=== PATIENT | male | born 1965 | race Caucasian/White ===

== ENCOUNTER 2016-09-18 07:38 | Outpatient (CLI) | payer MEDICAID | END 2016-09-18 23:59 | DX: E87.6 Hypokalemia (principal); G62.9 Polyneuropathy, unspecified ==

== ENCOUNTER 2017-04-27 13:42 | Outpatient (CLI) | payer MEDICAID ==
[2017-04-27 18:08] LABS: BASOPHILS % (AUTO) 0.5 %; EOSINOPHILS # (AUTO) 0.1 10^3/uL (0.0-0.7); EOSINOPHILS % (AUTO) 1.4 %; HCT - HEMATOCRIT 46.4 % (42.0-52.0); HGB - HEMOGLOBIN 15.5 g/dL (14.0-18.0); LYMPHOCYTES # (AUTO) 1.8 10^3/uL (1.5-3.5); LYMPHOCYTES % (AUTO) 22.3 %; MEAN CORPUSCULAR HEMOGLOBIN 31.3 pg (27.0-31.0); MEAN CORPUSCULAR HGB CONC 33.4 g/dL (32.0-36.0); MEAN CORPUSCULAR VOLUME 93.8 fL (80.0-94.0); MEAN PLATELET VOLUME 7.1 fL (7.4-11.4); MONOCYTES # (AUTO) 0.7 10^3/uL (0.0-1.0); NEUTROPHILS # (AUTO) 5.5 10^3/uL (1.5-6.6); NEUTROPHILS % (AUTO) 67.8 %; NUCLEATED RED BLOOD CELLS AUTO 0.1 /100WBC; RED BLOOD COUNT 4.94 10^6/uL (4.70-6.10); RED CELL DISTRIBUTION WIDTH 13.6 % (12.0-15.0); UNCORRECTED WHITE BLOOD COUNT 8.2 x10^3/uL; WHITE BLOOD COUNT 8.2 x10^3/uL (4.8-10.8)
[2017-04-27 18:22] LABS: ALBUMIN/GLOBULIN RATIO 1.3 (1.0-2.2); BILIRUBIN,TOTAL 0.4 mg/dL (0.2-1.0); BUN - BLOOD UREA NITROGEN 13 mg/dL (6-20); CALCIUM 9.8 mg/dL (8.5-10.3); CARBON DIOXIDE - CO2 27 mmol/L (21-32); CHLORIDE 100 mmol/L (101-111); CREATININE 0.8 mg/dL (0.6-1.2); GFR - MDRD 102 (>89); GLUCOSE 94 mg/dL (70-100); IRON 120 ug/dL (45-182); SODIUM 139 mmol/L (135-145); TOTAL IRON BINDING CAPACITY 328 ug/dL (250-450); TOTAL PROTEIN 7.7 g/dL (6.7-8.2); TRANSFERRIN 234 mg/dL (180-329)
[2017-04-27 18:28] LABS: CHOL/HDL RATIO 6.4 (<5.0); CHOLESTEROL 231 mg/dL; HDL CHOLESTEROL 36 mg/dL; LDL/HDL RATIO 4.2 (<3.6); TRIGLYCERIDES 215 mg/dL; VLDL CHOLESTEROL 43 mg/dL
[2017-04-27 18:31] LABS: THYROID STIMULATING HORMONE 2.34 uIU/mL (0.34-5.60)
== END 2017-04-27 13:43 | disposition home or self-care (01) ==
LOC: LAB.F 13:42
PROVIDERS: ATTEND Nurse Practitioner Family
DX: I10 Essential (primary) hypertension (principal); E87.6 Hypokalemia; G62.9 Polyneuropathy, unspecified
CPT/HCPCS: 36415; 80053; 80061; 80164; 82607; 83540; 84443; 84466; 85025

== ENCOUNTER 2017-12-17 09:13 | Outpatient (CLI) | payer MEDICAID ==
[2017-12-17 09:20] LABS: MUDS CUTOFF CONCENTRATIONS CUTOFF CONC BELOW:
[2017-12-17 18:39] LABS: AMPHETAMINE SCREEN,URINE NEGATIVE (NEGATIVE); COCAINE SCREEN URINE NEGATIVE (NEGATIVE); METHAMPHETAMINES SCREEN, URINE NEGATIVE (NEGATIVE); OPIATE SCREEN, URINE NEGATIVE (NEGATIVE)
[2017-12-17 18:40] LABS: BENZODIAZEPINES SCREEN, URINE POSITIVE (NEGATIVE); METHADONE SCREEN, URINE NEGATIVE (NEGATIVE); OXYCODONE SCREEN, URINE NEGATIVE (NEGATIVE); PROPOXYPHENE SCREEN, URINE NEGATIVE (NEGATIVE); TRICYCLIC ANTIDEPRESSANT,URINE NEGATIVE (NEGATIVE)
== END 2017-12-17 09:14 | disposition home or self-care (01) ==
LOC: LAB.R 09:13
PROVIDERS: ATTEND Nurse Practitioner Family
DX: G89.29 Other chronic pain (principal)
CPT/HCPCS: 80306

== ENCOUNTER 2018-08-12 11:25 | Outpatient (CLI) | payer MEDICAID ==
[2018-08-12 18:09] LABS: ALBUMIN 4.3 g/dL (3.2-5.5); ALBUMIN/GLOBULIN RATIO 1.2 (1.0-2.2); ALKALINE PHOSPHATASE 84 IU/L (42-121); ALT ALANINE AMINOTRANSFERASE 33 IU/L (10-60); AST ASPARTATE AMINOTRANSFERASE 21 IU/L (10-42); BILIRUBIN,TOTAL 0.6 mg/dL (0.2-1.0); BUN - BLOOD UREA NITROGEN 15 mg/dL (6-20); CALCIUM 9.6 mg/dL (8.5-10.3); CARBON DIOXIDE - CO2 29 mmol/L (21-32); CHLORIDE 100 mmol/L (101-111); CHOL/HDL RATIO 8.2 (<5.0); CHOLESTEROL 189 mg/dL; CREATININE 0.8 mg/dL (0.6-1.2); GFR - MDRD 102 (>89); GLUCOSE 83 mg/dL (70-100); HDL CHOLESTEROL 23 mg/dL; LDL CHOLESTEROL,CALCULATED 119 mg/dL; LDL/HDL RATIO 5.2 (<3.6); SODIUM 138 mmol/L (135-145); TOTAL PROTEIN 7.8 g/dL (6.7-8.2); VLDL CHOLESTEROL 47 mg/dL
[2018-08-12 19:23] LABS: BASOPHILS % (AUTO) 0.4 %; EOSINOPHILS # (AUTO) 0.2 10^3/uL (0.0-0.7); EOSINOPHILS % (AUTO) 2.8 %; HGB - HEMOGLOBIN 15.4 g/dL (14.0-18.0); LYMPHOCYTES # (AUTO) 2.2 10^3/uL (1.5-3.5); LYMPHOCYTES % (AUTO) 33.1 %; MEAN CORPUSCULAR HEMOGLOBIN 30.5 pg (27.0-31.0); MEAN CORPUSCULAR HGB CONC 33.2 g/dL (32.0-36.0); MEAN CORPUSCULAR VOLUME 91.9 fL (80.0-94.0); MEAN PLATELET VOLUME 7.5 fL (7.4-11.4); MONOCYTES # (AUTO) 0.6 10^3/uL (0.0-1.0); MONOCYTES % (AUTO) 9.7 %; NEUTROPHILS # (AUTO) 3.5 10^3/uL (1.5-6.6); PLT - PLATELET COUNT 314 10^3/uL (130-450); RED BLOOD COUNT 5.06 10^6/uL (4.70-6.10); RED CELL DISTRIBUTION WIDTH 13.2 % (12.0-15.0); WHITE BLOOD COUNT 6.5 x10^3/uL (4.8-10.8)
== END 2018-08-12 23:59 | disposition home or self-care (01) ==
LOC: LAB.S 11:25
PROVIDERS: ATTEND Nurse Practitioner Family
DX: I10 Essential (primary) hypertension (principal); E78.5 Hyperlipidemia, unspecified
CPT/HCPCS: 36415; 80053; 80061; 83721; 84443; 85025

== ENCOUNTER 2018-09-10 17:40 | Outpatient (CLI) | payer MEDICAID | END 2018-09-10 17:41 | disposition critical access hospital (66) | LOC: EMS 17:40 | PROVIDERS: ATTEND Surgery | DX: R45.851 Suicidal ideations (principal); M54.9 Dorsalgia, unspecified | CPT/HCPCS: A0425; A0429; A0999 ==

== ENCOUNTER 2018-09-10 18:13 | Emergency (ER) | payer MEDICAID ==
[2018-09-10 18:41] LABS: BASOPHILS # (AUTO) 0.1 10^3/uL (0.0-0.1); BASOPHILS % (AUTO) 0.7 %; EOSINOPHILS # (AUTO) 0.1 10^3/uL (0.0-0.7); EOSINOPHILS % (AUTO) 1.3 %; HGB - HEMOGLOBIN 15.8 g/dL (14.0-18.0); LYMPHOCYTES # (AUTO) 1.8 10^3/uL (1.5-3.5); LYMPHOCYTES % (AUTO) 22.1 %; MEAN CORPUSCULAR HEMOGLOBIN 30.5 pg (27.0-31.0); MEAN CORPUSCULAR HGB CONC 33.7 g/dL (32.0-36.0); MEAN CORPUSCULAR VOLUME 90.5 fL (80.0-94.0); MEAN PLATELET VOLUME 6.9 fL (7.4-11.4); MONOCYTES # (AUTO) 0.8 10^3/uL (0.0-1.0); MONOCYTES % (AUTO) 9.4 %; NEUTROPHILS # (AUTO) 5.5 10^3/uL (1.5-6.6); NEUTROPHILS % (AUTO) 66.5 %; PLT - PLATELET COUNT 279 10^3/uL (130-450); RED BLOOD COUNT 5.16 10^6/uL (4.70-6.10); RED CELL DISTRIBUTION WIDTH 13.6 % (12.0-15.0); WHITE BLOOD COUNT 8.3 x10^3/uL (4.8-10.8)
[2018-09-10 18:55] LABS: ACETAMINOPHEN < 10 ug/mL (10-30); ALBUMIN 4.4 g/dL (3.2-5.5); ALBUMIN/GLOBULIN RATIO 1.4 (1.0-2.2); ALKALINE PHOSPHATASE 88 IU/L (42-121); ALT ALANINE AMINOTRANSFERASE 46 IU/L (10-60); AST ASPARTATE AMINOTRANSFERASE 28 IU/L (10-42); BILIRUBIN,TOTAL 0.7 mg/dL (0.2-1.0); BUN - BLOOD UREA NITROGEN 11 mg/dL (6-20); CALCIUM 9.5 mg/dL (8.5-10.3); CARBON DIOXIDE - CO2 25 mmol/L (21-32); CHLORIDE 105 mmol/L (101-111); CREATININE 0.7 mg/dL (0.6-1.2); GFR - MDRD 118 (>89); GLUCOSE 94 mg/dL (70-100); LIPASE 38 U/L (22-51); SALICYLATE < 6.0 mg/dL; SODIUM 140 mmol/L (135-145); TOTAL PROTEIN 7.6 g/dL (6.7-8.2)
[2018-09-10 19:03] LABS: MUDS CUTOFF CONCENTRATIONS CUTOFF CONC BELOW:
--- NOTE | 2018-09-10 19:04 | ED Physician Documentation ---
PD HPI MHE - Stated complaint Stated Complaint: SI - Chief complaint Chief Complaint: MHE - History obtained from History obtained from: Patient - History of Present Illness Primary symptom: Suicidal ideation (he was at PCP office for pain med renewal and eval of worsened chronic pain. He was told by provider that they were not wanting to give Rx for meds (he has been on some chronic pain meds awhile). He was frustrated and got angry and said that he was tired of it all, alluding to killing himself and "end things", but not directly stating that he wanted to kill himself. He here says he was frustrated and not meant it. He wants to live and has daughter/family. He says he was upset at the time and has no intention of suicide, but does get tired of the chronic pain. He says it has been worse th an baseline the past couple of weeks.), Anxiety (and frustration), Out of meds Timing - onset: Today Contributing factors: Out of meds (pain meds ran out few days ago, and he was in office to get new Rx of same doses chronic meds.), Other (frustrated by provider desire to rapidly titrate him down and off pain meds and initially not wanting to give Rx at all. Wanting referral for pain clinic.) Review of Systems Constitutional: denies: Fever, Chills Nose: denies: Rhinorrhea / runny nose, Congestion Throat: denies: Sore throat Respiratory: denies: Cough GI: denies: Abdominal Pain, Vomiting, Diarrhea Musculoskeletal: reports: Neck pain, Back pain (chronically related to neurostimulator frontal lobe that was surgical treatment for OCD disorder, but led to chronic neuropathic pain neck and back/shoulder left side. He says the OCD did get better.) PD PAST MEDICAL HISTORY - Past Medical History Past Medical History: Yes Neuro: Peripheral neuropathy Psych: Depression, Anxiety, Panic attacks, Post traumatic stress disorder - Past Surgical History Past Surgical History: Yes Neuro: Other - Present Medications Home Medications: Ambulatory Orders Medication Instructions Recorded Confirmed Amlodipine Besylate 10 mg PO DAILY 09/10/18 09/10/18 Baclofen 10 mg PO DAILY 09/10/18 09/10/18 Buspirone HCl 30 mg PO DAILY 09/10/18 09/10/18 Divalproex Sodium [Depakote] 500 mg PO DAILY 09/10/18 09/10/18 HYDROcod/ACETAM 5/325 [[place] 5/325] 1 each PO PRN PRN 09/10/18 09/10/18 Irbesartan/Hydrochlorothiazide 1 each PO DAILY 09/10/18 09/10/18 [Irbesartan-Hctz 300-12.5 mg Tb] LORazepam [Lorazepam] 1 mg PO PRN PRN 09/10/18 09/10/18 Lidocaine Ointment 5% [Xylocaine 0 gm TOP ONCE 09/10/18 09/10/18 Ointment 5%] Lisdexamfetamine Dimesylate 40 mg PO DAILY 09/10/18 09/10/18 [Vyvanse] Nortriptyline HCl 50 mg PO DAILY 09/10/18 09/10/18 Pregabalin [Lyrica] 100 mg PO DAILY 09/10/18 09/10/18 Trazodone HCl 100 mg PO QPM 09/10/18 09/10/18 - Allergies Allergies/Adverse Reactions: Allergies Allergy/AdvReac Type Severity Reaction Status Date / Time No Known Drug Allergies Allergy Verified 09/10/18 18:22 - Social History Does the pt smoke?: No Smoking Status: Never smoker Does the pt drink ETOH?: No Does the pt have substance abuse?: Yes Substance Use and Type: Prescription Pills - Immunizations Immunizations are current?: Yes PD ED PE NORMAL - Vitals Vital signs reviewed: Yes - General General: Alert and oriented X 3, No acute distress, Well developed/nourished - Neck Neck: Supple, no meningeal sign, No adenopathy - Cardiac Cardiac: RRR, No murmur - Respiratory Respiratory: Clear bilaterally - Derm Derm: Normal color, Warm and dry - Neuro Eye Opening: Spontaneous Motor: Obeys Commands Verbal: Oriented GCS Score: 15 - Psych Psych: Normal mood, Normal affect (denies self harm ideation nor intention. ) Results - Vitals Vitals: Vital Signs - 24 hr 09/10/18 09/10/18 18:14 20:37 Temperature 36.3 C L Heart Rate 97 90 Respiratory 20 17 Rate Blood Pressure 173/115 H 169/119 H O2 Saturation 97 93 Oxygen O2 Source Room air - Labs Labs: Laboratory Tests 0409/10/18 09/10/18 18:33 18:33 18:33 WBC 8.3 RBC 5.16 Hgb 15.8 Hct 46.7 MCV 90.5 MCH 30.5 MCHC 33.7 RDW 13.6 Plt Count 279 MPV 6.9 L Neut # (Auto) 5.5 Lymph # (Auto) 1.8 [place] # (Auto) 0.8 Eos # (Auto) 0.1 Baso # (Auto) 0.1 Absolute Nucleated RBC 0.01 Nucleated RBC % 0.1 Sodium 140 Potassium 3.2 L Chloride 105 Carbon Dioxide 25 Anion Gap 10.0 BUN 11 Creatinine 0.7 Estimated GFR (MDRD) 118 Glucose 94 Calcium 9.5 Total Bilirubin 0.7 AST 28 ALT 46 Alkaline Phosphatase 88 Total Protein 7.6 Albumin 4.4 Globulin 3.2 Albumin/Globulin Ratio 1.4 Lipase 38 TSH 3.40 Urine Color Urine Clarity Urine pH Ur Specific [place] Urine Protein Urine Glucose (UA) Urine Ketones Urine Occult Blood Urine Nitrite Urine Bilirubin Urine Urobilinogen Ur Leukocyte Esterase Ur Microscopic Review Urine Culture Comments Salicylates < 6.0 Urine Opiates Screen Ur Oxycodone Screen Urine Methadone Screen Ur Propoxyphene Screen Acetaminophen < 10 L Ur Barbiturates Screen Ur Tricyclics Screen Ur Phencyclidine Scrn Ur Amphetamine Screen U Methamphetamines Scrn U Benzodiazepines Scrn Urine Cocaine Screen U Cannabinoids Screen Ethyl Alcohol < 5.0 09/10/18 18:53 WBC RBC Hgb Hct MCV MCH MCHC RDW Plt Count MPV Neut # (Auto) Lymph # (Auto) [place] # (Auto) Eos # (Auto) Baso # (Auto) Absolute Nucleated RBC Nucleated RBC % Sodium Potassium Chloride Carbon Dioxide Anion Gap BUN Creatinine Estimated GFR (MDRD) Glucose Calcium Total Bilirubin AST ALT Alkaline Phosphatase Total Protein Albumin Globulin Albumin/Globulin Ratio Lipase TSH Urine Color YELLOW Urine Clarity CLEAR Urine pH 8.0 H Ur Specific [place] 1.010 Urine Protein NEGATIVE Urine Glucose (UA) NEGATIVE Urine Ketones NEGATIVE Urine Occult Blood NEGATIVE Urine Nitrite NEGATIVE Urine Bilirubin NEGATIVE Urine Urobilinogen 0.2 (NORMAL) Ur Leukocyte Esterase NEGATIVE Ur Microscopic Review NOT INDICATED Urine Culture Comments NOT INDICATED Salicylates Urine Opiates Screen NEGATIVE Ur Oxycodone Screen NEGATIVE Urine Methadone Screen NEGATIVE Ur Propoxyphene Screen NEGATIVE Acetaminophen Ur Barbiturates Screen NEGATIVE Ur Tricyclics Screen NEGATIVE Ur Phencyclidine Scrn NEGATIVE Ur Amphetamine Screen POSITIVE H U Methamphetamines Scrn NEGATIVE U Benzodiazepines Scrn POSITIVE H Urine Cocaine Screen NEGATIVE U Cannabinoids Screen NEGATIVE Ethyl Alcohol PD MEDICAL DECISION MAKING - ED course Complexity details: considered differential (is not suicidal. was upset and frustrated with chronic pain and the current opiod-phobia with providers. He has not had regular meds for few days. Given IM meds here and then prepack. He did get Rx from PCP but will not be able to get it filled this evening due to time. I do note the Rx written was for pain meds bid, and the patient had been TID, so is a 50% reduction for chronic pain med, which is fast taper, but that is just my commentary. ), d/w patient Departure - Departure Disposition: 01 Home, Self Care Clinical Impression: Chronic pain disorder, Stress reaction Condition: Stable Record reviewed to determine appropriate education?: Yes Follow-Up: Mandy Ortega ARNP [Primary Care Provider] - Comments: Continue usual medications. Follow-up with your primary care have them give your referral to pain clinic if that seems appropriate. Discharge Date/Time: 09/10/18 20:42
[2018-09-10 19:06] LABS: BILIRUBIN,URINE NEGATIVE (NEGATIVE); GLUCOSE, URINE (UA) NEGATIVE (NEGATIVE); KETONES,URINE (UA) NEGATIVE (NEGATIVE); LEUKOCYTE ESTERASE, URINE NEGATIVE (NEGATIVE); NITRITE,URINE NEGATIVE (NEGATIVE); OCCULT BLOOD,URINE NEGATIVE (NEGATIVE); PROTEIN,URINE NEGATIVE (NEGATIVE); UROBILINOGEN,URINE 0.2 (NORMAL) E.U./dL (NORMAL)
[2018-09-10 19:16] LABS: AMPHETAMINE SCREEN,URINE POSITIVE (NEGATIVE); BENZODIAZEPINES SCREEN, URINE POSITIVE (NEGATIVE); CLARITY,URINE CLEAR (CLEAR); COCAINE SCREEN URINE NEGATIVE (NEGATIVE); METHADONE SCREEN, URINE NEGATIVE (NEGATIVE); METHAMPHETAMINES SCREEN, URINE NEGATIVE (NEGATIVE); OPIATE SCREEN, URINE NEGATIVE (NEGATIVE); OXYCODONE SCREEN, URINE NEGATIVE (NEGATIVE); PROPOXYPHENE SCREEN, URINE NEGATIVE (NEGATIVE); TRICYCLIC ANTIDEPRESSANT,URINE NEGATIVE (NEGATIVE)
[2018-09-10] MEDS ORDERED: KETOROLAC 30 MG/ML VIAL IM STA (19:34)
[2018-09-10] MEDS ORDERED: HYDROmorphone 1 MG/ML CARPUJECT IM STA (19:34)
[2018-09-10] MEDS ORDERED: diazePAM 5 MG TABLET PO STA (19:34)
[2018-09-10] MEDS ORDERED: HYDROcod/ACET 5/325 Prepack 4 PO STA (19:50)
[2018-09-10 20:38] VITALS: BP 169/119
== END 2018-09-10 20:42 | disposition home or self-care (01) ==
LOC: EDUNIT# → ED 18:13
DX: M54.2 Cervicalgia (principal); M54.9 Dorsalgia, unspecified; M25.512 Pain in left shoulder; G89.29 Other chronic pain; F43.9 Reaction to severe stress, unspecified; G62.9 Polyneuropathy, unspecified
CPT/HCPCS: 36415; 80053; 80306; 80307; 80320; 80329; 81003; 83690; 84443; 85025; 96372; 99283; A9270; J1170; 81001; 87086

== ENCOUNTER 2019-05-01 09:13 | Outpatient (CLI) | payer MEDICAID ==
[2019-05-01 17:24] LABS: BASOPHILS # (AUTO) 0.1 10^3/uL (0.0-0.1); BASOPHILS % (AUTO) 1.1 %; EOSINOPHILS # (AUTO) 0.2 10^3/uL (0.0-0.7); EOSINOPHILS % (AUTO) 3.2 %; HGB - HEMOGLOBIN 15.8 g/dL (14.0-18.0); LYMPHOCYTES # (AUTO) 1.5 10^3/uL (1.5-3.5); LYMPHOCYTES % (AUTO) 26.5 %; MEAN CORPUSCULAR HEMOGLOBIN 31.3 pg (27.0-31.0); MEAN CORPUSCULAR HGB CONC 33.9 g/dL (32.0-36.0); MEAN CORPUSCULAR VOLUME 92.3 fL (80.0-94.0); MEAN PLATELET VOLUME 9.6 fL (7.4-11.4); MONOCYTES # (AUTO) 0.5 10^3/uL (0.0-1.0); MONOCYTES % (AUTO) 8.5 %; NEUTROPHILS # (AUTO) 3.4 10^3/uL (1.5-6.6); NEUTROPHILS % (AUTO) 60.3 %; PLT - PLATELET COUNT 318 10^3/uL (130-450); RED BLOOD COUNT 5.05 10^6/uL (4.70-6.10); RED CELL DISTRIBUTION WIDTH 12.6 % (12.0-15.0); WHITE BLOOD COUNT 5.7 x10^3/uL (4.8-10.8)
[2019-05-01 17:51] LABS: ALBUMIN 4.6 g/dL (3.2-5.5); ALBUMIN/GLOBULIN RATIO 1.5 (1.0-2.2); BILIRUBIN,TOTAL 0.7 mg/dL (0.2-1.0); CALCIUM 9.2 mg/dL (8.5-10.3); CREATININE 0.8 mg/dL (0.6-1.2); TOTAL PROTEIN 7.7 g/dL (6.7-8.2)
[2019-05-01 17:55] LABS: AMYLASE 81 U/L (28-100); CHOL/HDL RATIO 8.2 (<5.0); CHOLESTEROL 189 mg/dL; HDL CHOLESTEROL 23 mg/dL; LDL CHOLESTEROL,CALCULATED 114 mg/dL; VLDL CHOLESTEROL 52 mg/dL
== END 2019-05-01 09:14 | disposition home or self-care (01) ==
LOC: LAB.S 09:13
PROVIDERS: ATTEND Nurse Practitioner Psychiatric/Mental Health
DX: E78.5 Hyperlipidemia, unspecified (principal); R11.0 Nausea; Z51.81 Encounter for therapeutic drug level monitoring; Z13.29 Encounter for screening for other suspected endocrine disorder; Z79.899 Other long term (current) drug therapy; I10 Essential (primary) hypertension; R10.13 Epigastric pain; F33.1 Major depressive disorder, recurrent, moderate
CPT/HCPCS: 36415; 80053; 80061; 82150; 82306; 82607; 83721; 84443; 85025

== ENCOUNTER 2020-08-03 16:34 | Observation (INO) | payer MEDICAID ==
[2020-08-03] MEDS ORDERED: SODIUM CHLORIDE 0.9% 1,000 ML IV STA (16:57)
--- NOTE | 2020-08-03 16:59 | ED Physician Documentation ---
History of Present Illness - Stated complaint Stated Complaint: SENT BY PCP-GI BLEED - Chief complaint Chief Complaint: Abd Pain - Additonal information Additional information: 55-year-old male presents emergency department for evaluation of 3 days of bloody diarrhea and mild left-sided abdominal pain. He reports that 3 days ago after having a bowel movement he noticed that toilet bowl had bloody stool in it. Since then he has noticed blood after wiping or davian hematochezia. He is not anticoagulated. Does not use NSAIDs. Denies excessive alcohol use. No history of previous GI bleed. He has never had a colonoscopy or colon cancer screening. No recent antibiotics or travel. Denies chest pain or shortness of breath. Review of Systems Constitutional: denies: Fever, Chills Eyes: reports: Reviewed and negative Ears: reports: Reviewed and negative Nose: reports: Reviewed and negative Throat: reports: Reviewed and negative Cardiac: reports: Chest pain / pressure Respiratory: denies: Dyspnea, Cough GI: reports: Abdominal Pain, Diarrhea, Bloody / black stool. denies: Nausea, Vomiting, Constipation : denies: Dysuria, Frequency, Hesitancy Skin: denies: Rash, Lesions Musculoskeletal: denies: Neck pain, Back pain Neurologic: reports: Reviewed and negative Psychiatric: reports: Reviewed and negative PD PAST MEDICAL HISTORY - Past Medical History Neuro: Peripheral neuropathy Psych: Depression, Anxiety, Panic attacks, Post traumatic stress disorder - Past Surgical History Past Surgical History: Yes Neuro: Other - Present Medications Home Medications: Ambulatory Orders Medication Instructions Recorded Confirmed Amlodipine Besylate 10 mg PO DAILY 09/10/18 09/10/18 Baclofen 10 mg PO DAILY 09/10/18 09/10/18 Buspirone HCl 30 mg PO DAILY 09/10/18 09/10/18 Divalproex Sodium [Depakote] 500 mg PO DAILY 09/10/18 09/10/18 HYDROcod/ACETAM 5/325 [[place] 5/325] 1 each PO PRN PRN 09/10/18 09/10/18 Irbesartan/Hydrochlorothiazide 1 each PO DAILY 09/10/18 09/10/18 [Irbesartan-Hctz 300-12.5 mg Tb] LORazepam [Lorazepam] 1 mg PO PRN PRN 09/10/18 09/10/18 Lidocaine Ointment 5% [Xylocaine 0 gm TOP ONCE 09/10/18 09/10/18 Ointment 5%] Lisdexamfetamine Dimesylate 40 mg PO DAILY 09/10/18 09/10/18 [Vyvanse] Nortriptyline HCl 50 mg PO DAILY 09/10/18 09/10/18 Pregabalin [Lyrica] 100 mg PO DAILY 09/10/18 09/10/18 Trazodone HCl 100 mg PO QPM 09/10/18 09/10/18 - Allergies Allergies/Adverse Reactions: Allergies Allergy/AdvReac Type Severity Reaction Status Date / Time No Known Drug Allergies Allergy Verified 08/03/20 16:41 - Social History Does the pt smoke?: No Smoking Status: Never smoker Does the pt drink ETOH?: No Does the pt have substance abuse?: Yes - Immunizations Immunizations are current?: Yes PD ED PE EXPANDED - General General: Alert, No acute distress, Well developed/nourished - Cardiac Cardiac: Regular Rate, Tachy, Radial strong equal, Pedal strong equal, Cap refill < 2 sec. No: Murmur Present - Respiratory Respiratory: Clear to ausultation zach. No: Distress, Labored - Abdomen Abdomen: Normal Bowel sounds, Tender to palpation, LLQ (Tenderness to left lower quadrant without guarding or rebound. No flank or CVA tenderness) - Back Back: Normal exam, CVA TTP right. No: CVA TTP left - Derm Derm: Normal color, Warm and dry. No: Rash, Petecchiae, Purpura - Extremities Extremities: Normal. No: Deformity, Tenderness - Neuro Neuro: Alert and Oriented X 3, CNII-XII intact - GCS Eye Opening: Spontaneous Motor: Obeys Commands Verbal: Oriented Total: 15 Results - Vitals Vitals: Vital Signs - 24 hr 08/03/20 08/03/20 16:42 17:30 Temperature 36.8 C 36.8 C Heart Rate 111 H 111 H Respiratory 18 18 Rate Blood Pressure 143/93 H 143/93 H O2 Saturation 100 100 Oxygen O2 Source Room air - Labs Labs: Laboratory Tests 08/03/20 08/03/20 08/03/20 15:03 15:03 15:03 WBC 9.6 RBC 3.11 L Hgb 9.7 L Hct 28.9 L MCV 92.9 MCH 31.2 H MCHC 33.6 RDW 13.2 Plt Count 302 MPV 8.7 Neut # (Auto) 5.5 Lymph # (Auto) 2.9 [place] # (Auto) 0.8 Eos # (Auto) 0.2 Baso # (Auto) 0.1 Absolute Nucleated RBC 0.00 Nucleated RBC % 0.0 PT 12.5 INR 1.1 Sodium 138 Potassium 3.6 Chloride 107 Carbon Dioxide 25 Anion Gap 6.0 BUN 17 Creatinine 0.8 Estimated GFR (MDRD) 101 Glucose 102 H Calcium 9.0 Total Bilirubin < 0.2 L AST 26 ALT 43 Alkaline Phosphatase 68 Total Protein 6.7 Albumin 4.1 Globulin 2.6 Albumin/Globulin Ratio 1.6 Lipase 37 Urine Color Urine Clarity Urine pH Ur Specific [place] Urine Protein Urine Glucose (UA) Urine Ketones Urine Occult Blood Urine Nitrite Urine Bilirubin Urine Urobilinogen Ur Leukocyte Esterase Ur Microscopic Review Urine Culture Comments 08/03/20 17:15 WBC RBC Hgb Hct MCV MCH MCHC RDW Plt Count MPV Neut # (Auto) Lymph # (Auto) [place] # (Auto) Eos # (Auto) Baso # (Auto) Absolute Nucleated RBC Nucleated RBC % PT INR Sodium Potassium Chloride Carbon Dioxide Anion Gap BUN Creatinine Estimated GFR (MDRD) Glucose Calcium Total Bilirubin AST ALT Alkaline Phosphatase Total Protein Albumin Globulin Albumin/Globulin Ratio Lipase Urine Color YELLOW Urine Clarity CLEAR Urine pH 6.0 Ur Specific [place] >=1.030 H Urine Protein TRACE Urine Glucose (UA) NEGATIVE Urine Ketones TRACE Urine Occult Blood NEGATIVE Urine Nitrite NEGATIVE Urine Bilirubin NEGATIVE Urine Urobilinogen 0.2 (NORMAL) Ur Leukocyte Esterase NEGATIVE Ur Microscopic Review NOT INDICATED Urine Culture Comments NOT INDICATED - Rads (name of study) CT abd Radiology: Final report received (Moderate colonic diverticulosis without signs of acute diverticulitis. Nonobstructing 3 mm calculus in the inferior region of the right kidney. No hydronephrosis. Mild hepatic steatosis.) PD MEDICAL DECISION MAKING - ED course Complexity details: reviewed results, re-evaluated patient, considered differential, d/w patient ED course: 55-year-old male presents emergency department for evaluation of 3 days of bloody diarrhea. Reports feeling somewhat lightheaded and dizzy but is never had colonoscopy or colon cancer screening. No recent antibiotics. On presentation he does have some mild tenderness in the left lower quadrant. Patient is not anticoagulated and does not use NSAIDs or alcohol excessively. Screening labs reveal moderate anemia with a hemoglobin of 9.7. This is a 6 g drop from baseline. no thrombocytopenia. Screening electrolytes are otherwise unremarkable. CT of the abdomen showed some mild diverticulosis without an obvious finding of diverticulitis or a cause for the bloody diarrhea. Given the anemia and reported bloody stools for 3 days I did discuss this case with on-call surgeon Dr. Quesada. She requests a medic medical admission with surgical consult. She would like the patient to have a GI prep overnight with a plan to do endoscopy/colonoscopy tomorrow. 1944: I have spoken with [facility] hospitalist Dr. powell who has agreed to admit pt for further evaluation of GI with surgical consult and scoping tomorrow Departure - Departure Disposition: ED Place in Observation Clinical Impression: GI bleed Qualifiers: GI bleed type/associated pathology: unspecified gastrointestinal hemorrhage type Qualified Code(s): K92.2 - Gastrointestinal hemorrhage, unspecified Anemia Qualifiers: Anemia type: unspecified type Qualified Code(s): D64.9 - Anemia, unspecified Follow-Up: AMINAH SALAZAR PA-C [Primary Care Provider] -
[2020-08-03] MEDS ORDERED: IOVERSOL 320 100 ML VIAL IVP ONE ×2 (17:12→19:14)
[2020-08-03 17:13] LABS: BASOPHILS # (AUTO) 0.1 10^3/uL (0.0-0.1); BASOPHILS % (AUTO) 0.8 %; EOSINOPHILS # (AUTO) 0.2 10^3/uL (0.0-0.7); HCT - HEMATOCRIT 28.9 % (42.0-52.0); HGB - HEMOGLOBIN 9.7 g/dL (14.0-18.0); LYMPHOCYTES # (AUTO) 2.9 10^3/uL (1.5-3.5); LYMPHOCYTES % (AUTO) 30.4 %; MEAN CORPUSCULAR HEMOGLOBIN 31.2 pg (27.0-31.0); MEAN CORPUSCULAR HGB CONC 33.6 g/dL (32.0-36.0); MEAN CORPUSCULAR VOLUME 92.9 fL (80.0-94.0); MEAN PLATELET VOLUME 8.7 fL (7.4-11.4); MONOCYTES # (AUTO) 0.8 10^3/uL (0.0-1.0); MONOCYTES % (AUTO) 7.9 %; NEUTROPHILS # (AUTO) 5.5 10^3/uL (1.5-6.6); NEUTROPHILS % (AUTO) 57.5 %; PLT - PLATELET COUNT 302 10^3/uL (130-450); RED BLOOD COUNT 3.11 10^6/uL (4.70-6.10); RED CELL DISTRIBUTION WIDTH 13.2 % (12.0-15.0); WHITE BLOOD COUNT 9.6 x10^3/uL (4.8-10.8)
[2020-08-03 17:23] LABS: INR 1.1 (0.8-1.2); PT - PROTHROMBIN TIME 12.5 secs (9.9-12.6)
[2020-08-03 17:25] LABS: BILIRUBIN,URINE NEGATIVE (NEGATIVE); GLUCOSE, URINE (UA) NEGATIVE (NEGATIVE); KETONES,URINE (UA) TRACE mg/dL (NEGATIVE); LEUKOCYTE ESTERASE, URINE NEGATIVE (NEGATIVE); NITRITE,URINE NEGATIVE (NEGATIVE); OCCULT BLOOD,URINE NEGATIVE (NEGATIVE); PROTEIN,URINE TRACE mg/dL (NEGATIVE); UROBILINOGEN,URINE 0.2 (NORMAL) E.U./dL (NORMAL)
[2020-08-03 17:26] LABS: ALBUMIN 4.1 g/dL (3.2-5.5); ALBUMIN/GLOBULIN RATIO 1.6 (1.0-2.2); ALKALINE PHOSPHATASE 68 IU/L (42-121); ALT ALANINE AMINOTRANSFERASE 43 IU/L (10-60); AST ASPARTATE AMINOTRANSFERASE 26 IU/L (10-42); BILIRUBIN,TOTAL < 0.2 mg/dL (0.2-1.0); BUN - BLOOD UREA NITROGEN 17 mg/dL (6-20); CARBON DIOXIDE - CO2 25 mmol/L (21-32); CHLORIDE 107 mmol/L (101-111); CREATININE 0.8 mg/dL (0.6-1.2); GFR - MDRD 101 (>89); GLUCOSE 102 mg/dL (70-100); LIPASE 37 U/L (22-51); POTASSIUM 3.6 mmol/L (3.5-5.0); SODIUM 138 mmol/L (135-145); TOTAL PROTEIN 6.7 g/dL (6.7-8.2)
[2020-08-03 17:26] LABS: CLARITY,URINE CLEAR (CLEAR)
--- NOTE | 2020-08-03 18:54 | CT Report ---
PROCEDURE: Abdomen/Pelvis W INDICATIONS: Blood diarrhea CONTRAST: IV CONTRAST: Optiray 320 ml: 100 PO CONTRAST: *NO PO CONTRAST TECHNIQUE: After the administration of intravenous contrast, 5 mm thick sections acquired from the diaphragms to the symphysis. 5 mm thick coronal and sagittal reformats were acquired. For radiation dose reducti on, the following was used: automated exposure control, adjustment of mA and/or kV according to aleisha ent size. COMPARISON: None. FINDINGS: Image quality: Excellent. ABDOMEN: Lung bases: Lung bases are clear. Heart size is normal. Solid organs: The liver is normal in size. Mild hypoattenuation of the liver is most likely related t o diffuse fatty infiltration. The gallbladder appears normal. Biliary system is non dilated. Pancrea s enhances normally. The spleen is normal in size. No adrenal nodules. Kidneys demonstrate normal s ize and enhancement, without hydronephrosis. A nonobstructing 3 mm calculus is seen in the interpola r region of the right kidney. Hypoattenuating lesions in both kidneys most likely represent benign cy sts. Peritoneum and bowel: Scattered diverticula are seen in the colon without signs of acute diverticulit is. Normal appendix. No free fluid or air. Nodes and vessels: No retroperitoneal or mesenteric adenopathy by size criteria. Aorta and inferior vena cava are normal in size. Miscellaneous: No ventral hernias. PELVIS: Genitourinary: Bladder wall thickness is normal. Miscellaneous: No inguinal hernias or adenopathy. Bones: No suspicious bony lesions. No vertebral body compression fractures. Focal degenerative adrián nges are seen at the L5-S1 level. IMPRESSION: 1. Moderate colonic diverticulosis without signs of acute diverticulitis. 2. Nonobstructing 3 mm calculus in the interpolar region of the right kidney. No hydronephrosis. 3. Mild hepatic steatosis. Reviewed by: Eric Mcmullen MD on 08/03/2020 5:53 PM AKLAURA Approved by: Eric Mcmullen MD on 08/03/2020 5:53 PM AKDT Station ID: [id number]
[2020-08-03] MEDS ORDERED: SODIUM CHLORIDE FLUSH 0.9% 10 ML SYRINGE IVP PRN (19:46)
[2020-08-03] MEDS ORDERED: ONDANSETRON 4 MG/2 ML VIAL IVP PRN (19:46)
--- NOTE | 2020-08-03 19:52 | HISTORY & PHYSICAL EXAMINATION ---
Chief Complaint - Chief Complaint Chief Complaint: bloody diarrhea History of Present Illness - Admitted From Admitted From:: [facility] ED - History Obtained From Records Reviewed: yes History obtained from: patient - History of Present Illness HPI Comment/Other: Patient is a 55-year-old male with medical history significant for insomnia, anxiety, hypertension, obsessive-compulsive disorder, prostate cancer status post surgery who presented to the ED with complaint of bloody diarrhea for 3 days. He was concerned and decided to come to the ED today after numerous occurrences of bloody diarrhea since onset. He reported feeling dizzy at time of initial onset but denied dizziness today. He denied chest pain, dyspnea, nausea, vomiting, fever or chills. He reported mild abdominal tenderness. His hemoglobin normally ranges around 15. Today CBC showed a hemoglobin of 9.7. He denies NSAID use and rarely consumes alcohol. He denies any previous occurence of this symptoms and he has never had a colonoscopy. As a result of his presentation he was admitted for further work-up. Dr. Monisha Quesada with general surgery was contacted by the ED provider and she is agreeable to see the patient in consult for colonoscopy tomorrow. 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 Mesh placed. - Family & Social History Family History Comment/Other: Patient denied any sigificant family history Living arrangement: At home Social History Notes: He lives at home with his parents. He does not use tobacco products or recreational substances. He rarely drinks alcohol. - POLST Patient has POLST: No POLST Status: Full Code Meds/Allgy - Home Medications Home Medications: Ambulatory Orders Medication Instructions Recorded Confirmed Amlodipine Besylate 10 mg PO DAILY 09/10/18 09/10/18 Baclofen 10 mg PO DAILY 09/10/18 09/10/18 Buspirone HCl 30 mg PO DAILY 09/10/18 09/10/18 Divalproex Sodium [Depakote] 500 mg PO DAILY 09/10/18 09/10/18 HYDROcod/ACETAM 5/325 [[place] 5/325] 1 each PO PRN PRN 09/10/18 09/10/18 Irbesartan/Hydrochlorothiazide 1 each PO DAILY 09/10/18 09/10/18 [Irbesartan-Hctz 300-12.5 mg Tb] LORazepam [Lorazepam] 1 mg PO PRN PRN 09/10/18 09/10/18 Lidocaine Ointment 5% [Xylocaine 0 gm TOP ONCE 09/10/18 09/10/18 Ointment 5%] Lisdexamfetamine Dimesylate 40 mg PO DAILY 09/10/18 09/10/18 [Vyvanse] Nortriptyline HCl 50 mg PO DAILY 09/10/18 09/10/18 Pregabalin [Lyrica] 100 mg PO DAILY 09/10/18 09/10/18 Trazodone HCl 100 mg PO QPM 09/10/18 09/10/18 - Allergies Allergies/Adverse Reactions: Allergies Allergy/AdvReac Type Severity Reaction Status Date / Time No Known Drug Allergies Allergy Verified 08/03/20 16:41 Review of Systems - Constitutional Constitutional: denies: Fatigue, Fever, Chills, Weakness - Eyes Eyes: denies: Pain, Dipolpia - Cardiovascular Cariovascular: denies: Irregular heart rate, Chest pain, Edema, Lightheadedness, Syncope, Exertional dyspnea - Respiratory Respiratory: denies: Wheezing, SOB at rest, SOB with exertion - Gastrointestinal Gastrointestinal: reports: Abdominal pain (mild tenderness), Diarrhea, Bloody stools. denies: Constipation, Black stools, Nausea, Vomiting, Coffee grounds emesis, Reflux/heartburn, Bloating, Poor appetite - Genitourinary Genitourinary: denies: Dysuria, Frequency, Urgency, Hematuria, Incontinence, Flank pain, Nocturia - Musculoskeletal Musculoskeletal: denies: Muscle pain, Back pain, Muscle aches - Integumentary Integumentary: denies: Rash, Pruritis, Lesions, Dryness - Neurological Neurological: denies: General weakness, Focal weakness, Headache, Dizziness - Psychiatric Psychiatric: denies: Depression, Anxiety - Endocrine Endocrine: denies: Polyuria, Polydypsia - Hematologic/Lymphatic Hematologic/Lymphatic: denies: Anemia, Bruising, Petechiae Prior Level of Functionality: He is independent of activities of daily living Exam - Vital Signs Vital Signs: Vital Signs x48h Temp Pulse Resp BP Pulse Ox 08/03/20 17:30 36.8 C 111 H 18 143/93 H 100 08/03/20 16:42 36.8 C 111 H 18 143/93 H 100 - Physical Exam General Appearance: positive: Alert, Mild distress Eyes Bilateral: positive: PERRL, EOMI ENT: positive: No signs of dehydration Neck: positive: No JVD, Trachea midline Respiratory: positive: Chest non-tender, No respiratory distress, Breath sounds nml. negative: Wheezes, Rales, Rhonchi Cardiovascular: positive: No murmur, Tachycardia Abdomen: positive: Nml bowel sounds, Tenderness (mild). negative: Guarding, Rebound Rectal: positive: Bloody stool. negative: Black stool Back: positive: Nml inspection Skin: positive: Color nml, No rash, Warm, Dry Extremities: positive: Non-tender, Full ROM, Nml appearance, No pedal edema Neurologic/Psychiatric: positive: Oriented x3, Mood/affect nml Conclusion/Plan - Problem List (1) GI bleed Conclusion/Plan: Etiology undetermined. Suspect lower GI bleed. Patient's hemoglobin today is 9.7. Usually his hemoglobin is about 15. Will monitor Bowel prep initiated. IV hydration with normal saline at 125 mL/h Dr. Monisha Quesada with general surgery was consulted. Anticipating a colonoscopy tomorrow. Qualifiers: GI bleed type/associated pathology: unspecified gastrointestinal hemorrhage type Qualified Code(s): K92.2 - Gastrointestinal hemorrhage, unspecified (2) Anemia Conclusion/Plan: Acute blood loss anemia versus chronic. Patient's hemoglobin in April 2019 was 15.8. His hemoglobin today is 9.7. We will check vitamin B12, folate and iron studies Qualifiers: Anemia type: unspecified type Qualified Code(s): D64.9 - Anemia, unspecifie d (3) Anxiety and depression Conclusion/Plan: On abilify and buspirone Will resume after colonoscopy Ativan ordered prn. (4) Hypertension Conclusion/Plan: Will resume home medication once verified and after colonoscopy Will order labetalol prn for SBP > 160 - Lab Results Fish Bones: 08/03/20 15:03 08/03/20 15:03 Core Measures - Anticipated LOS I expect patient to be DC'd or transferred within 96 hours.: Yes - DVT/VTE - Prophylaxis VTE/DVT Device ordered at admit?: Yes VTE/DVT Prophylaxis med ordered at admit?: No
[2020-08-03] MEDS: SODIUM/POTASSIUM/MAG SULFATES 354 ML PREP KIT PO SCH (21:32)
[2020-08-03] MEDS ORDERED: LORazepam 2 MG/ML VIAL IVP PRN (22:12)
[2020-08-03] MEDS ORDERED: LABETALOL 20 MG/4 ML SYRINGE IVP PRN (22:35)
[2020-08-04] MEDS: SODIUM CHLORIDE FLUSH 0.9% 10 ML SYRINGE IVP SCH ×4 (00:07→23:56)
[2020-08-04] MEDS: SODIUM CHLORIDE 0.9% 1,000 ML IV SCH ×2 (00:22→08:49)
[2020-08-04 05:03] LABS: BASOPHILS # (AUTO) 0.1 10^3/uL (0.0-0.1); BASOPHILS % (AUTO) 0.6 %; EOSINOPHILS # (AUTO) 0.3 10^3/uL (0.0-0.7); EOSINOPHILS % (AUTO) 3.6 %; HCT - HEMATOCRIT 23.4 % (42.0-52.0); HGB - HEMOGLOBIN 7.9 g/dL (14.0-18.0); LYMPHOCYTES # (AUTO) 2.5 10^3/uL (1.5-3.5); LYMPHOCYTES % (AUTO) 29.7 %; MEAN CORPUSCULAR HEMOGLOBIN 31.7 pg (27.0-31.0); MEAN CORPUSCULAR HGB CONC 33.8 g/dL (32.0-36.0); MONOCYTES # (AUTO) 0.7 10^3/uL (0.0-1.0); MONOCYTES % (AUTO) 7.9 %; NEUTROPHILS # (AUTO) 4.8 10^3/uL (1.5-6.6); NEUTROPHILS % (AUTO) 57.4 %; PLT - PLATELET COUNT 236 10^3/uL (130-450); RED BLOOD COUNT 2.49 10^6/uL (4.70-6.10); RED CELL DISTRIBUTION WIDTH 13.2 % (12.0-15.0); WHITE BLOOD COUNT 8.4 x10^3/uL (4.8-10.8)
[2020-08-04] MEDS: SODIUM/POTASSIUM/MAG SULFATES 354 ML PREP KIT PO SCH (05:09)
[2020-08-04 05:23] LABS: CREATININE 0.8 mg/dL (0.6-1.2); POTASSIUM 3.9 mmol/L (3.5-5.0)
[2020-08-04 06:08] LABS: FOLATE 11.47 ng/mL (5.90 - >24.8)
[2020-08-04] MEDS: PANTOPRAZOLE 40 MG VIAL IVP SCH (06:42)
[2020-08-04] MEDS ORDERED: CYANOCOBALAMIN 1,000 MCG/ML VIAL IM ONE (08:21)
[2020-08-04] MEDS ORDERED: HYDROcod/ACETAM 5/325 MG TABLET PO PRN (08:25)
[2020-08-04] MEDS: busPIRone 5 MG TABLET PO SCH ×2 (08:49→20:06)
[2020-08-04 09:07] LABS: VALPROIC ACID (DEPAKOTE) < 10.0 ug/mL
--- NOTE | 2020-08-04 09:29 | ANESTHESIA ---
Pre-Anesthesia VS, & Labs - Diagnosis bloody diarrhea - Procedure colonoscopy Vital Signs: Temp Pulse Resp BP Pulse Ox 36.6 C 95 18 114/89 H 97 08/04/20 05:00 08/04/20 05:00 08/04/20 05:00 08/04/20 05:00 08/04/20 05:00 Height: 5 ft 9 in Weight (kg): 96.5 kg Body Mass Index: 31.4 BMI Classification: Obese - NPO >8 hours - Lab Results Current Lab Results: Laboratory Tests 08/04/20 08:48: Valproic Acid < 10.0 08/04/20 07:30: Blood Type O POSITIVE, Antibody Screen NEGATIVE, Crossmatch IS Only See Detail 08/04/20 04:00: Blood Type Recheck O POSITIVE 08/04/20 04:00: Vitamin B12 159 L, Folate 11.47 08/04/20 04:00: Sodium 141, Potassium 3.9, Chloride 109, Carbon Dioxide 26, Anion Gap 6.0, BUN 12, Creatinine 0.8, Estimated GFR (MDRD) 101, Glucose 98, Calcium 8.0 L, Iron 45, TIBC 255, % Saturation 18 L, Transferrin 182 08/04/20 04:00: WBC 8.4, RBC 2.49 L, Hgb 7.9 L, Hct 23.4 L, MCV 94.0, MCH 31.7 H , MCHC 33.8, RDW 13.2, Plt Count 236, MPV 9.0, Neut # (Auto) 4.8, Lymph # (Auto) 2.5, Nicholas # (Auto) 0.7, Eos # (Auto) 0.3, Baso # (Auto) 0.1, Absolute Nucleated RBC 0.00, Nucleated RBC % 0.0 08/03/20 15:03: PT 12.5, INR 1.1 08/03/20 15:03: Sodium 138, Potassium 3.6, Chloride 107, Carbon Dioxide 25, Anion Gap 6.0, BUN 17, Creatinine 0.8, Estimated GFR (MDRD) 101, Glucose 102 H, Calcium 9.0, Total Bilirubin < 0.2 L, AST 26, ALT 43, Alkaline Phosphatase 68, Total Protein 6.7, Albumin 4.1, Globulin 2.6, Albumin/Globulin Ratio 1.6, Lipase 37 08/03/20 15:03: WBC 9.6, RBC 3.11 L, Hgb 9.7 L, Hct 28.9 L, MCV 92.9, MCH 31.2 H , MCHC 33.6, RDW 13.2, Plt Count 302, MPV 8.7, Neut # (Auto) 5.5, Lymph # (Auto) 2.9, Nicholas # (Auto) 0.8, Eos # (Auto) 0.2, Baso # (Auto) 0.1, Absolute Nucleated RBC 0.00, Nucleated RBC % 0.0 Lab results reviewed: Yes Fish Bones: 08/04/20 04:00 08/04/20 04:00 Home Medications and Allergies Active Medications Hydrocodone Bitart/Acetaminophen (Hydrocod/Acetam 5/325 Mg Tablet) 1 tab PO Q4HR PRN PRN Reason: PAIN Buspirone HCl (Buspirone 5 Mg Tablet) 5 mg PO BID [facility] Last Admin: 08/04/20 08:49 Dose: Not Given Documented by: Sodium Chloride (Normal Saline 0.9%) 1,000 mls @ 125 mls/hr IV .Q8H [facility] Last Admin: 08/04/20 08:49 Dose: 125 mls/hr Documented by: Labetalol HCl (Labetalol 20 Mg/4 Ml Syringe) 10 mg IVP Q4H PRN PRN Reason: PER PHYSICIAN ORDER Lorazepam (Lorazepam 2 Mg/Ml Vial) 0.5 mg IVP Q8H PRN PRN Reason: Anxiety Last Admin: 08/04/20 00:07 Dose: 0.5 mg Documented by: Ondansetron HCl (Ondansetron 4 Mg/2 Ml Vial) 4 mg IVP Q6HR PRN PRN Reason: Nausea / Vomiting Pantoprazole Sodium (Pantoprazole 40 Mg Vial) 40 mg IVP QDAC [facility] Last Admin: 08/04/20 06:42 Dose: 40 mg Documented by: Sodium Chloride (Sodium Chloride Flush 0.9% 10 Ml Syringe) 10 ml IVP PRN PRN PRN Reason: NEEDED PER PROVIDER ORDERS Sodium Chloride (Sodium Chloride Flush 0.9% 10 Ml Syringe) 10 ml IVP 0100,0900,1700 [facility] Last Admin: 08/04/20 08:49 Dose: 10 ml Documented by: Amlodipine Besylate 10 mg PO DAILY 09/10/18 Baclofen 10 mg PO DAILY 09/10/18 Buspirone HCl 30 mg PO DAILY 09/10/18 Divalproex Sodium [Depakote] 500 mg PO DAILY 09/10/18 HYDROcod/ACETAM 5/325 [[place] 5/325] 1 each PO PRN PRN 09/10/18 Irbesartan/Hydrochlorothiazide [Irbesartan-Hctz 300-12.5 mg Tb] 1 each PO DAILY 09/10/18 LORazepam [Lorazepam] 1 mg PO PRN PRN 09/10/18 Lidocaine Ointment 5% [Xylocaine Ointment 5%] 0 gm TOP ONCE 09/10/18 Lisdexamfetamine Dimesylate [Vyvanse] 40 mg PO DAILY 09/10/18 Nortriptyline HCl 50 mg PO DAILY 09/10/18 Pregabalin [Lyrica] 100 mg PO DAILY 09/10/18 Trazodone HCl 100 mg PO QPM 09/10/18 Allergies/Adverse Reactions: Allergies Allergy/AdvReac Type Severity Reaction Status Date / Time No Known Drug Allergies Allergy Verified 08/03/20 16:41 Anes History & Medical History - Anesthetic History Anesthesia Complications: reports: No previous complications Family history of Anesthesia Complications: Denies Family history of Malignant Hyperthermia: Denies - Medical History Cardiovascular: reports: Hypertension Neuro: reports: Peripheral neuropathy Smoking Status: Never smoker Psychosocial: reports: Anxiety, Other (OCD) Other Past Medical History: History of prostate cancer - Surgical History Urologic: reports: Prostatic surgery Neurologic: reports: Other (brain stim for OCD) Other Past Surgical History: Due to his left leg in high school due to an injury during sports. Mesh placed. Exam General: Alert, Oriented x3, Cooperative, No acute distress Dental: WNL Mouth Openin Fingerbreadth Neck Mobility: Normal Mallampati classification: II Respiratory: Lungs clear, Normal breath sounds, No respiratory distress, No accessory muscle use Cardiovascular: Regular rate, Normal S1, Normal S2, No murmurs Plan Anesthesia Type: General Consent for Procedure(s) Verified and Reviewed: Yes Code Status: Attempt Resuscitation ASA classification: 2-Mild systemic disease Is this case an emergency?: No
[2020-08-04] MEDS: D5.45NS W/20 MEQ KCL 1,000 ML IV SCH ×2 (13:50→23:56)
[2020-08-04 14:25] LABS: HCT - HEMATOCRIT 27.2 % (42.0-52.0)
--- NOTE | 2020-08-04 14:50 | PROVIDER PROGRESS NOTE ---
Assessment/Plan - Problem List (1) GI bleed Qualifiers: GI bleed type/associated pathology: unspecified gastrointestinal hemorrhage type Qualified Code(s): K92.2 - Gastrointestinal hemorrhage, unspecified Assessment/Plan: 08/04 Patient still report bloody stool in the morning. Patient's hemoglobin is 7.9. Patient will have 1 unit blood transfusion, pt report pt's feeling of dizziness. We will continue H&H to monitor, Continue consult with the GI surgeon, patient is planned to have colonoscopy at this afternoon. Continue IV fluids, n.p.o. Patient already finished bowel prepare for colonoscopy. (2) Anemia-B12 Deficiency Patient was found B12 deficiency anemia plus active blood loss from GI bleed. Patient will have 1 unit of blood transfusion, Continue H&H to monitor hemoglobin. (3) Anxiety and depression will resume home meds after confirmed by pharmacy. continue Ativan prn. (4) Hypertension stable, Will resume home blood pressure medicine after confirmed by pharmacy - Current Meds Current Meds: Current Medications Generic Name Dose Route Start Last Admin Trade Name Almasq PRN Reason Stop Dose Admin Buspirone HCl 5 mg 08/04/20 09:00 08/04/20 08:49 Buspirone 5 Mg Tablet PO Not Given BID [facility] Potassium Chloride/Dextrose/Sod Cl 1,000 mls @ 100 mls/hr 08/04/20 13:00 08/04/20 13:50 D5.45ns W/20 Meq Kcl IV 08/05/20 08:59 100 mls/hr .Q10H [facility] Administration Lorazepam 0.5 mg 08/03/20 22:12 08/04/20 00:07 Lorazepam 2 Mg/Ml Vial IVP 0.5 mg Q8H PRN Administration Anxiety Pantoprazole Sodium 40 mg 08/04/20 07:00 08/04/20 06:42 Pantoprazole 40 Mg Vial IVP 40 mg QDAC [facility] Administration Sodium Chloride 10 ml 08/04/20 01:00 08/04/20 08:49 Sodium Chloride Flush 0.9% 10 Ml Syringe IVP 10 ml 0100,0900,1700 [facility] Administration - Lab Result Fish Bone Diagrams: 08/04/20 14:10 08/04/20 04:00 - Additional Planning My Orders: My Active Orders 08/04/20 08:25 HYDROcod/ACETAM 5/325 [[place] 5/325] 1 tab PO Q4HR PRN 08/04/20 09:00 busPIRone [Buspar] 5 mg PO BID 08/04/20 13:00 D5.45ns W/20 Meq KCl 1,000 ml IV 100 mls/hr 08/04/20 21:00 traZODone [Desyrel] 150 mg PO QPM 08/04/20 22:00 H&H [HEMOGLOBIN AND HEMATOCRIT] [HEME] Q8H Subjective - Subjective Patient Reports: Feeling Better Objective Vital Signs: Vital Signs - 24 hr 08/03/20 08/03/20 08/03/20 16:42 17:30 20:13 Temperature 36.8 C 36.8 C 36.8 C Heart Rate 111 H 111 H 91 Heart Rate [ Brachial] Respiratory 18 18 18 Rate Blood Pressure 143/93 H 143/93 H 144/97 H Blood Pressure [Right Brachial artery] O2 Saturation 100 100 98 08/03/20 08/04/20 08/04/20 21:19 00:00 05:00 Temperature 36.8 C 36.5 C 36.6 C Heart Rate Heart Rate [ 88 107 H 95 Brachial] Respiratory 18 20 18 Rate Blood Pressure Blood Pressure 164/98 H 142/90 H 114/89 H [Right Brachial artery] O2 Saturation 99 96 97 08/04/20 08/04/20 08/04/20 09:00 10:44 11:08 Temperature 36.6 C 37.0 C 36.7 C Heart Rate 96 91 Heart Rate [ 99 Brachial] Respiratory 18 17 20 Rate Blood Pressure 128/94 H 148/94 H Blood Pressure 128/85 H [Right Brachial artery] O2 Saturation 94 08/04/20 08/04/20 13:00 13:40 Temperature 36.9 C 36.8 C Heart Rate 90 Heart Rate [ 90 Brachial] Respiratory 19 18 Rate Blood Pressure 139/89 H Blood Pressure 143/101 H [Right Brachial artery] O2 Saturation 97 Oxygen O2 Source Room air I&O (Last 24 Hrs): Intake and Output Totals x24h 08/02/20 08/03/20 08/04/20 23:59 23:59 23:59 Intake Total 1855 1675 Output Total 200 900 Balance 1655 775 General: Alert, Oriented x3, Cooperative, No acute distress HEENT: Atraumatic Neck: Supple Lymphatic: no adenopathy Neuro: Alert, Non Focal, Oriented Times 3 Cardiovascular: Regular rate, Normal S1, Normal S2 Respiratory: Chest non-tender, No respiratory distress, Breath sounds nml Abdomen: Normal bowel sounds, Soft Extremities: Normal pulses - Results Results: Laboratory Results WBC 8.4 x10^3/uL (4.8-10.8) 08/04/20 04:00 RBC 2.49 10^6/uL (4.70-6.10) L 08/04/20 04:00 Hgb 9.0 g/dL (14.0-18.0) L 08/04/20 14:10 Hct 27.2 % (42.0-52.0) L 08/04/20 14:10 MCV 94.0 fL (80.0-94.0) 08/04/20 04:00 MCH 31.7 pg (27.0-31.0) H 08/04/20 04:00 MCHC 33.8 g/dL (32.0-36.0) 08/04/20 04:00 RDW 13.2 % (12.0-15.0) 08/04/20 04:00 Plt Count 236 10^3/uL (130-450) 08/04/20 04:00 MPV 9.0 fL (7.4-11.4) 08/04/20 04:00 Neut # (Auto) 4.8 10^3/uL (1.5-6.6) 08/04/20 04:00 Lymph # (Auto) 2.5 10^3/uL (1.5-3.5) 08/04/20 04:00 Story # (Auto) 0.7 10^3/uL (0.0-1.0) 08/04/20 04:00 Eos # (Auto) 0.3 10^3/uL (0.0-0.7) 08/04/20 04:00 Baso # (Auto) 0.1 10^3/uL (0.0-0.1) 08/04/20 04:00 Absolute Nucleated RBC 0.00 x10^3/uL 08/04/20 04:00 Nucleated RBC % 0.0 /100WBC 08/04/20 04:00 PT 12.5 secs (9.9-12.6) 08/03/20 15:03 INR 1.1 (0.8-1.2) 08/03/20 15:03 Sodium 141 mmol/L (135-145) 08/04/20 04:00 Potassium 3.9 mmol/L (3.5-5.0) 08/04/20 04:00 Chloride 109 mmol/L (101-111) 08/04/20 04:00 Carbon Dioxide 26 mmol/L (21-32) 08/04/20 04:00 Anion Gap 6.0 (6-13) 08/04/20 04:00 BUN 12 mg/dL (6-20) 08/04/20 04:00 Creatinine 0.8 mg/dL (0.6-1.2) 08/04/20 04:00 Estimated GFR (MDRD) 101 (>89) 08/04/20 04:00 Glucose 98 mg/dL (70-100) 08/04/20 04:00 Calcium 8.0 mg/dL (8.5-10.3) L 08/04/20 04:00 Iron 45 ug/dL (45-182) 08/04/20 04:00 TIBC 255 ug/dL (250-450) 08/04/20 04:00 % Saturation 18 % (20-50) L 08/04/20 04:00 Transferrin 182 mg/dL (180-329) 08/04/20 04:00 Total Bilirubin < 0.2 mg/dL (0.2-1.0) L 08/03/20 15:03 AST 26 IU/L (10-42) 08/03/20 15:03 ALT 43 IU/L (10-60) 08/03/20 15:03 Alkaline Phosphatase 68 IU/L (42-121) 08/03/20 15:03 Total Protein 6.7 g/dL (6.7-8.2) 08/03/20 15:03 Albumin 4.1 g/dL (3.2-5.5) 08/03/20 15:03 Globulin 2.6 g/dL (2.1-4.2) 08/03/20 15:03 Albumin/Globulin Ratio 1.6 (1.0-2.2) 08/03/20 15:03 Lipase 37 U/L (22-51) 08/03/20 15:03 Vitamin B12 159 pg/mL (180-914) L 08/04/20 04:00 Folate 11.47 ng/mL (5.90 - >24.8) 08/04/20 04:00 Urine Color YELLOW 08/03/20 17:15 Urine Clarity CLEAR (CLEAR) 08/03/20 17:15 Urine pH 6.0 PH (5.0-7.5) 08/03/20 17:15 Ur Specific [place] >=1.030 (1.002-1.030) H 08/03/20 17:15 Urine Protein TRACE mg/dL (NEGATIVE) 08/03/20 17:15 Urine Glucose (UA) NEGATIVE mg/dL (NEGATIVE) 08/03/20 17:15 Urine Ketones TRACE mg/dL (NEGATIVE) 08/03/20 17:15 Urine Occult Blood NEGATIVE (NEGATIVE) 08/03/20 17:15 Urine Nitrite NEGATIVE (NEGATIVE) 08/03/20 17:15 Urine Bilirubin NEGATIVE (NEGATIVE) 08/03/20 17:15 Urine Urobilinogen 0.2 (NORMAL) E.U./dL (NORMAL) 08/03/20 17:15 Ur Leukocyte Esterase NEGATIVE (NEGATIVE) 08/03/20 17:15 Ur Microscopic Review NOT INDICATED 08/03/20 17:15 Urine Culture Comments NOT INDICATED 08/03/20 17:15 Valproic Acid < 10.0 ug/mL 08/04/20 08:48 Blood Type O POSITIVE 08/04/20 07:30 Blood Type Recheck O POSITIVE 08/04/20 04:00 Antibody Screen NEGATIVE 08/04/20 07:30 Crossmatch IS Only See Detail 08/04/20 07:30 ABX Reporting Has patient been on IV antibiotics over the past 48 hours?: No Current Medications - Current Medications Current Medications: Active Medications Hydrocodone Bitart/Acetaminophen (Hydrocod/Acetam 5/325 Mg Tablet) 1 tab PO Q4HR PRN PRN Reason: PAIN Buspirone HCl (Buspirone 5 Mg Tablet) 5 mg PO BID [facility] Last Admin: 08/04/20 08:49 Dose: Not Given Documented by: Potassium Chloride/Dextrose/Sod Cl (D5.45ns W/20 Meq Kcl) 1,000 mls @ 100 mls/hr IV .Q10H [facility] Stop: 08/05/20 08:59 Last Admin: 08/04/20 13:50 Dose: 100 mls/hr Documented by: Labetalol HCl (Labetalol 20 Mg/4 Ml Syringe) 10 mg IVP Q4H PRN PRN Reason: PER PHYSICIAN ORDER Lorazepam (Lorazepam 2 Mg/Ml Vial) 0.5 mg IVP Q8H PRN PRN Reason: Anxiety Last Admin: 08/04/20 00:07 Dose: 0.5 mg Documented by: Ondansetron HCl (Ondansetron 4 Mg/2 Ml Vial) 4 mg IVP Q6HR PRN PRN Reason: Nausea / Vomiting Pantoprazole Sodium (Pantoprazole 40 Mg Vial) 40 mg IVP QDAC [facility] Last Admin: 08/04/20 06:42 Dose: 40 mg Documented by: Sodium Chloride (Sodium Chloride Flush 0.9% 10 Ml Syringe) 10 ml IVP PRN PRN PRN Reason: NEEDED PER PROVIDER ORDERS Sodium Chloride (Sodium Chloride Flush 0.9% 10 Ml Syringe) 10 ml IVP 0100,0900,1700 [facility] Last Admin: 08/04/20 08:49 Dose: 10 ml Documented by: Trazodone HCl (Trazodone 50 Mg Tablet) 150 mg PO QPM [facility] Amlodipine Besylate 10 mg PO DAILY 09/10/18 Baclofen 10 mg PO DAILY 09/10/18 Buspirone HCl 30 mg PO DAILY 09/10/18 Divalproex Sodium [Depakote] 500 mg PO DAILY 09/10/18 HYDROcod/ACETAM 5/325 [[place] 5/325] 1 each PO PRN PRN 09/10/18 Irbesartan/Hydrochlorothiazide [Irbesartan-Hctz 300-12.5 mg Tb] 1 each PO DAILY 09/10/18 LORazepam [Lorazepam] 1 mg PO PRN PRN 09/10/18 Lidocaine Ointment 5% [Xylocaine Ointment 5%] 0 gm TOP ONCE 09/10/18 Lisdexamfetamine Dimesylate [Vyvanse] 40 mg PO DAILY 09/10/18 Nortriptyline HCl 50 mg PO DAILY 09/10/18 Pregabalin [Lyrica] 100 mg PO DAILY 09/10/18 Trazodone HCl 100 mg PO QPM 09/10/18
[2020-08-04] MEDS ORDERED: PROPOFOL 500 MG/50 ML 500 MG/50 ML VIAL ONE (15:55)
--- NOTE | 2020-08-04 16:42 | ANESTHESIA POST OP EVALUATION ---
Anesthesia Post Eval - Post Anesthesia Eval Vitals: Last Vital Signs Temp 36.8 C 08/04/20 15:52 Pulse 96 08/04/20 15:52 Resp 18 08/04/20 15:52 BP 141/94 H 08/04/20 15:52 Pulse Ox 97 08/04/20 15:52 CV Function Including HR & BP: positive: Stable Pain Control: positive: Satisfactory Nausea & Vomiting: positive: Negative Mental Status: positive: Baseline Respiratory Status: Airway Patent Hydration Status: Satisfactory Anesthesia Complications: positive: None
[2020-08-04] MEDS ORDERED: traZODone 50 MG TABLET PO SCH (21:00)
[2020-08-04 22:23] LABS: HCT - HEMATOCRIT 25.1 % (42.0-52.0); HGB - HEMOGLOBIN 8.6 g/dL (14.0-18.0)
[2020-08-05 04:46] LABS: BASOPHILS # (AUTO) 0.1 10^3/uL (0.0-0.1); BASOPHILS % (AUTO) 0.7 %; EOSINOPHILS # (AUTO) 0.3 10^3/uL (0.0-0.7); EOSINOPHILS % (AUTO) 4.4 %; HGB - HEMOGLOBIN 8.5 g/dL (14.0-18.0); LYMPHOCYTES # (AUTO) 2.2 10^3/uL (1.5-3.5); LYMPHOCYTES % (AUTO) 31.8 %; MEAN CORPUSCULAR HEMOGLOBIN 29.9 pg (27.0-31.0); MEAN CORPUSCULAR HGB CONC 32.7 g/dL (32.0-36.0); MEAN CORPUSCULAR VOLUME 91.5 fL (80.0-94.0); MEAN PLATELET VOLUME 8.7 fL (7.4-11.4); MONOCYTES # (AUTO) 0.6 10^3/uL (0.0-1.0); MONOCYTES % (AUTO) 8.8 %; NEUTROPHILS # (AUTO) 3.7 10^3/uL (1.5-6.6); NEUTROPHILS % (AUTO) 53.4 %; PLT - PLATELET COUNT 230 10^3/uL (130-450); RED BLOOD COUNT 2.84 10^6/uL (4.70-6.10); RED CELL DISTRIBUTION WIDTH 15.1 % (12.0-15.0); WHITE BLOOD COUNT 6.8 x10^3/uL (4.8-10.8)
[2020-08-05 04:57] LABS: CALCIUM 7.9 mg/dL (8.5-10.3); CREATININE 0.7 mg/dL (0.6-1.2); POTASSIUM 3.4 mmol/L (3.5-5.0)
[2020-08-05] MEDS: PANTOPRAZOLE 40 MG VIAL IVP SCH (06:12)
[2020-08-05] MEDS ORDERED: POTASSIUM CHLORIDE 20 MEQ TABLET PO ONE ×2 (06:47→07:36)
[2020-08-05] MEDS: busPIRone 5 MG TABLET PO SCH (08:18)
[2020-08-05 10:05] LABS: HCT - HEMATOCRIT 27.5 % (42.0-52.0); HGB - HEMOGLOBIN 8.9 g/dL (14.0-18.0)
--- NOTE | 2020-08-05 10:43 | PHARMACY PROGRESS NOTE ---
- Best Possible Medication History Admit Date and Time: 08/03/201945 Processed by: Pharmacy Medication History completed: Yes Patient Interview: Completed Secondary Source(s): Insurance records As the person ultimately responsible for medication therapy, providers are able to order a medication from an existing home medication list in [facility] via the "Reconcile Routine" prior to Confirmation of that medication by academic support assistant. Such practice is discouraged except when the physician, in their clinical judgment, deems that a medical need exists for a medication without regard to previous use.
--- NOTE | 2020-08-05 11:14 | Discharge Plan ---
Discharge Plan Problem Reviewed?: Yes Disposition: Home, Self Care Condition: Stable Diet: Regular Activity Restrictions: Activity as Tolerated Shower Restrictions: No (fall precaution) Instruction Topics: Bleeding Gastrointestinal, Diverticulosis Diverticulitis Health Concerns: GI bleed Plan of Treatment: Your HGB is stable and raised. you have colonoscopy done at hospital. You were found to have severe diverticulosis throughout the entire examined colon with the greatest concentration of pocket in the sigmoid region which is the most likely etiology for your recent rectal bleeding. You are consulted with Dietitian for your dietary suggestion, Avoid any NSAIDs such as ibuprofen, closely monitor your bowel movement. If you still have GI bleeding , please present ER or call 911 for help. Care Goals: stabilization and prevention of your GI bleeding. Assessment: Discussed the care plan with you, you understood. Additional Instructions or Follow Up instructions: You may followup with your PCP in one to two week, recheck your HGB again, followup with out-pt measurement coordinator. Should your symptoms return or worsen, you may present ER or call 911 for help. No Smoking: If you smoke, Please STOP! Call for help. Follow-up with: AMINAH SALAZAR PA-C [Primary Care Provider] -
--- NOTE | 2020-08-05 11:18 | DISCHARGE SUMMARY ---
Discharge Summary Admit Date: 08/03/20 Discharge Date: 08/05/20 Discharging Provider: Bayron Webster Primary Care Provider: Meek Baldwin Condition at Discharge: Stable Discharge Disposition: 01 Home, Self Care Discharge Facility Name: home - DIAGNOSES Discharge Diagnoses with Status of Each Condition: (1) GI bleed Pt had no bowel movement on today Patient's hemoglobin is stable and raised. pt had colonoscopy done at hospital by GI surgeon. Discussed Colonoscopy results and image study result with patient. pt has severe diverticulosis throughout the entire examined colon with the greatest concentration of pocket in the sigmoid region which is the most likely etiology for his recent rectal bleeding. CT of abdomen/pelvis show moderate colonic diverticulosis without sign of acute diverticulitis. pt has Dietitian consult for his dietary suggestion, advise pt Avoid any NSAIDs such as ibuprofen, closely monitor his bowel movement. If he still have GI bleeding , pt may present ER or call 911 for help. (2) Anemia Patient was found B12 deficiency anemia plus active blood loss from GI bleed. Patient had 1 unit of blood transfusion. Now his HGB is 8.9, stable and increased. pt was given IM of B12 at hospital. Followup with his PCP to recheck his HGB (3) Anxiety and depression stable, continue home meds. (4) Hypertension stable, resume home meds - HPI History of Present Illness: refer from 's HPI on 08/03/20 Patient is a 55-year-old male with medical history significant for insomnia, anxiety, hypertension, obsessive-compulsive disorder, prostate cancer status post surgery who presented to the ED with complaint of bloody diarrhea for 3 days. He was concerned and decided to come to the ED today after numerous occurrences of bloody diarrhea since onset. He reported feeling dizzy at time of initial onset but denied dizziness today. He denied chest pain, dyspnea, nausea, vomiting, fever or chills. He reported mild abdominal tenderness. His hemoglobin normally ranges around 15. Today CBC showed a hemoglobin of 9.7. He denies NSAID use and rarely consumes alcohol. He denies any previous occurence of this symptoms and he has never had a colonoscopy. As a result of his presentation he was admitted for further work-up. Dr. Monisha Quesada with general surgery was contacted by the ED provider and she is agreeable to see the patient in consult for colonoscopy tomorrow. - HOSPITAL COURSE Hospital Course: Patient is admitted for GI rectal bleeding. pt had 1 units blood transfusion in the hospital. CT of abdomen/pelvis show moderate colonic diverticulosis without sign of acute diverticulitis. Patient had colonoscopy done in the hospital by GI surgeon. pt has severe diverticulosis throughout the entire examined colon with the greatest concentration of pocket in the sigmoid region which is the most likely etiology for his recent rectal bleeding. Patient hemoglobin is stable and raised. advise pt Avoid any NSAIDs such as ibuprofen, closely monitor his bowel movement. If he still have GI bleeding , pt may present ER or call 911 for help. - ALLERGIES Allergies/Adverse Reactions: Allergies Allergy/AdvReac Type Severity Reaction Status Date / Time No Known Drug Allergies Allergy Verified 08/03/20 16:41 - MEDICATIONS Home Medications: Ambulatory Orders Medication Instructions Recorded Confirmed LORazepam [Lorazepam] 1 mg PO PRN PRN 09/10/18 08/05/20 Lidocaine Ointment 5% [Xylocaine 1 applic TOP DAILY PRN 09/10/18 08/05/20 Ointment 5%] Trazodone HCl 150 mg PO QPM 09/10/18 08/05/20 Aripiprazole [Abilify] 10 mg PO DAILY 08/05/20 08/05/20 Losartan Potassium [Cozaar] 100 mg PO QPM 08/05/20 08/05/20 Vortioxetine Hydrobromide 20 mg PO QPM 08/05/20 08/05/20 [Trintellix] - PHYSICAL EXAM AT DISCHARGE General Appearance: positive: No acute distress, Alert. negative: Lethargic Eyes Bilateral: positive: Normal inspection, PERRL, No lid inflammation ENT: positive: ENT inspection nml, No signs of dehydration. negative: Purulent nasal drainage Neck: positive: Nml inspection, Trachea midline. negative: Thyromegaly, Tracheal deviation Respiratory: positive: Chest non-tender, No respiratory distress, Breath sounds nml. negative: Wheezes, Rales Cardiovascular: positive: Regular rate & rhythm, No murmur. negative: Tachycardia, Bradycardia, Systolic murmur, Diastolic murmur Peripheral Pulses: positive: 2+ Abdomen: positive: Non-tender, Nml bowel sounds, No distention. negative: Tenderness, Guarding, Rebound Back: positive: Nml inspection Skin: positive: Color nml, Warm, Dry. negative: Cyanosis, Diaphoresis, Pallor Extremities: positive: Non-tender, Full ROM, Nml appearance. negative: Calf tenderness Neurologic/Psychiatric: positive: Oriented x3, Motor nml, Sensation nml, Mood/affect nml. negative: Weakness, Sensory loss, Facial droop, Slurred/abnml speech, Depressed mood/affect - LABS Result Diagrams: 08/05/20 10:02 08/05/20 03:55 - FOLLOW UP Follow Up: Your HGB is stable and raised. you have colonoscopy done at hospital. You were found to have severe diverticulosis throughout the entire examined colon with the greatest concentration of pocket in the sigmoid region which is the most likely etiology for your recent rectal bleeding. You are consulted with Dietitian for your dietary suggestion, Avoid any NSAIDs such as ibuprofen, closely monitor your bowel movement. If you still have GI bleeding , please present ER or call 911 for help. You may followup with your PCP in one to two week, recheck your HGB again, followup with out-pt rail doweling machine operator. Should your symptoms return or worsen, you may present ER or call 911 for help. - TIME SPENT Time Spent in Discharge (Minutes): 30
[2020-08-05] MEDS: SODIUM CHLORIDE FLUSH 0.9% 10 ML SYRINGE IVP SCH (11:47)
[2020-08-05 13:20] VITALS: BP 142/92
--- OUTSIDE RECORDS SUMMARY | 2020-08-17 17:00 | EXTERNAL MEDICAL SUMMARY RPT | Continuity of Care Document ---
:1965 Demographics Phone Unavailable Preferred Language Unknown Marital Status Unknown Tenriism Affiliation Unknown Race Unknown Ethnic Group Unknown Author Organization [facility] Address [address] [place] [address] Phone Social History date description facility [id number]
--- NOTE | 2020-08-19 12:34 | HISTORY & PHYSICAL EXAMINATION ---
HPI - Admitted From Admitted from: ED - History Obtained From History obtained from: Patient Exam limitations: No limitations - History of Present Illness Pain/Problem Location Description: Painless, bright red rectal bleeding HPI Comment/Other: Patient is a 55-year-old male with medical history significant for insomnia, anxiety, hypertension, obsessive-compulsive disorder, prostate cancer status post surgery who presented to the ED with complaint of bloody diarrhea for 3 days. He was concerned and decided to come to the ED today after numerous occurrences of bloody diarrhea since onset. He reported feeling dizzy at time of initial onset but denied dizziness today. He denied chest pain, dyspnea, nausea, vomiting, fever or chills. He reported mild abdominal tenderness. His hemoglobin normally ranges around 15. Today CBC showed a hemoglobin of 9.7. He denies NSAID use and rarely consumes alcohol. He denies any previous occurence of this symptoms and he has never had a colonoscopy. PMH/PSH - Past Medical History Cardiovascular: positive: Hypertension Neuro: positive: Peripheral neuropathy Psych: positive: Depression, Anxiety, Panic attacks, Post traumatic stress disorder, Obsessive compulsive disorder Other Past Medical History: History of prostate cancer - Past Surgical History /DIALYSIS NURSE: positive: Other (prostate surgery) Neuro: positive: Other (brain stim for OCD) Other past surgical history: Due to his left leg in high school due to an injury during sports. Mesh placed. Social & Family Hx - Living Situation Living Arrangement: At home - Social History Does the pt smoke?: No Smoking Status: Never smoker Does the pt drink ETOH?: No Does the pt have substance abuse?: Yes - POLST Patient has POLST: No POLST Status: Full Code Meds/Allgy - Home Medications Home Medications: Ambulatory Orders Medication Instructions Recorded Confirmed LORazepam [Lorazepam] 1 mg PO PRN PRN 09/10/18 08/05/20 Lidocaine Ointment 5% [Xylocaine 1 applic TOP DAILY PRN 09/10/18 08/05/20 Ointment 5%] Trazodone HCl 150 mg PO QPM 09/10/18 08/05/20 Aripiprazole [Abilify] 10 mg PO DAILY 08/05/20 08/05/20 Losartan Potassium [Cozaar] 100 mg PO QPM 08/05/20 08/05/20 Vortioxetine Hydrobromide 20 mg PO QPM 08/05/20 08/05/20 [Trintellix] - Allergies Allergies/Adverse Reactions: Allergies Allergy/AdvReac Type Severity Reaction Status Date / Time No Known Drug Allergies Allergy Verified 08/03/20 16:41 Review of Systems - Constitutional Constitutional: reports: Fatigue - All Other Systems All Other Systems: reports: Reviewed and negative Exam - Vital Signs Reviewed Vital Signs: Yes - Physical Exam General Appearance: positive: No acute distress, Alert Eyes Bilateral: positive: Normal inspection Neck: positive: Nml inspection Respiratory: positive: Chest non-tender, No respiratory distress, Breath sounds nml Cardiovascular: positive: Regular rate & rhythm, No murmur Peripheral Pulses: positive: 0 Abdomen: positive: Non-tender Neurologic/Psychiatric: positive: Oriented x3 Results - Lab Results Fish Bones: 08/05/20 10:02 08/05/20 03:55 - Diagnostic Imaging Results Diagnostic Imaging Results Comments: Diverticulosis without diverticulitis Impression/Plan - Problem List Problem List: Painless rectal bleeding. I have recommended colonoscopy and the patient has prepped overnight. We will proceed
== END 2020-08-05 13:25 | disposition home or self-care (01) ==
LOC: ED 16:34 → MS3 19:46
PROVIDERS: ADMIT Internal Medicine; ATTEND Nurse Practitioner Gerontology
PROC: 0DJD8ZZ Inspection of Lower Intestinal Tract, Via Natural or Artificial Opening Endoscopic (ICD-10-PCS; principal; 2020-08-04 16:15)
DX: K57.31 Diverticulosis of large intestine without perforation or abscess with bleeding (principal); D62 Acute posthemorrhagic anemia; D51.9 Vitamin B12 deficiency anemia, unspecified; I10 Essential (primary) hypertension; G62.9 Polyneuropathy, unspecified; F41.9 Anxiety disorder, unspecified; F32.9 Major depressive disorder, single episode, unspecified; F42.9 Obsessive-compulsive disorder, unspecified; F41.0 Panic disorder [episodic paroxysmal anxiety]; F43.10 Post-traumatic stress disorder, unspecified; Z20.822 Contact with and (suspected) exposure to COVID-19; G47.00 Insomnia, unspecified; E66.9 Obesity, unspecified; Z68.31 Body mass index [BMI] 31.0-31.9, adult; Z79.899 Other long term (current) drug therapy; Z90.79 Acquired absence of other genital organ(s); Z85.46 Personal history of malignant neoplasm of prostate
CPT/HCPCS: 36415; 36430; 45378; 74177; 80048; 80053; 80164; 81003; 82607; 82746; 83540; 83690; 84466; 85014; 85018; 85025; 85610; 86850; 86900; 86901; 86920; 87635; 96365; 96366; 96372; 96375; 99284; 99285; A9270; G0378; J2060; P9016; Q9967; 81001; 87086